=== PATIENT | female | born 1965 | race Caucasian/White ===

== ENCOUNTER 2020-08-27 00:04 | Emergency (ER) | payer BC, OTHER ==
[2020-08-27 01:03] VITALS: TEMP 98.1; BMI 28.2
[2020-08-27] MEDS ORDERED: ALPRAZolam 0.25 MG TABLET PO ONE (01:30)
[2020-08-27] MEDS ORDERED: ALPRAZolam 0.25 MG TABLET ONE (01:36)
[2020-08-27 02:54] VITALS: BP 103/75; PULSE 73
== END 2020-08-27 02:52 | disposition home or self-care (01) ==
LOC: JER 00:04
DX: F41.9 Anxiety disorder, unspecified (principal)
CPT/HCPCS: 93005; 93010; 99283-25